=== PATIENT | male | born 1960 | race American Indian/Alaskan Native ===

== ENCOUNTER 2020-12-03 08:00 | Outpatient (CLI) | payer OTHER | END 2020-12-03 08:30 | disposition home or self-care (01) | LOC: PPH VACUNA 08:00 | DX: Z23 Encounter for immunization (principal) ==

== ENCOUNTER 2020-12-23 08:00 | Outpatient (CLI) | payer OTHER | END 2020-12-23 08:30 | disposition home or self-care (01) | LOC: PPH VACUNA 08:00 | DX: Z23 Encounter for immunization (principal) ==

== ENCOUNTER 2022-01-06 11:15 | Inpatient (IN) | payer OTHER ==
[~2022-01-06] VITALS: Ht 175.3 cm; Wt 90.7 kg
[2022-01-06] MEDS ORDERED: ATORVASTATIN CA10 MG PO (13:18)
[2022-01-06] MEDS ORDERED: TOPROL XL25 M1 PO (13:18)
[2022-01-06] MEDS ORDERED: DICYCLOMINE HCL20 MG PO (13:19)
[2022-01-06] MEDS ORDERED: GABAPENTIN800 MG (13:19)
== END 2022-01-14 12:42 | disposition home or self-care (01) | DRG 330 ==
LOC: O/R 01-11 06:48 → SURH 01-11 10:30 → O/R 01-11 19:06 → SURH 01-12 14:49
PROVIDERS: ADMIT Colon & Rectal Surgery; ATTEND Colon & Rectal Surgery
PROC: 0DBP4ZZ Excision of Rectum, Percutaneous Endoscopic Approach (ICD-10-PCS; 2022-01-11)
PROC: 0DTN4ZZ Resection of Sigmoid Colon, Percutaneous Endoscopic Approach (ICD-10-PCS; principal; 2022-01-11 10:30)
DX: K57.32 Diverticulitis of large intestine without perforation or abscess without bleeding (principal); K92.1 Melena; D12.5 Benign neoplasm of sigmoid colon; Z20.822 Contact with and (suspected) exposure to COVID-19; I11.9 Hypertensive heart disease without heart failure; Z86.718 Personal history of other venous thrombosis and embolism; G47.39 Other sleep apnea; E78.49 Other hyperlipidemia

== ENCOUNTER 2022-01-07 10:23 | Outpatient (CLI) | payer OTHER ==
[~2022-01-07 10:23] MED LIST: ATORVASTATIN CA10 MG PO; DICYCLOMINE HCL20 MG PO; GABAPENTIN800 MG; TOPROL XL25 M1 PO
== END 2022-01-07 10:27 | disposition home or self-care (01) ==
LOC: NUCLEAR 10:23
PROVIDERS: ATTEND Internal Medicine Geriatric Medicine
DX: Z86.718 Personal history of other venous thrombosis and embolism (principal); Z88.5 Allergy status to narcotic agent